=== PATIENT | male | born 1960 | race Caucasian/White ===

== ENCOUNTER 2017-03-20 19:37 | Inpatient (IN) | payer SELFPAY ==
[2017-03-20 21:01] LABS: BASOPHILS 0.5 % (0-2); EOSINOPHILS 0 % (0-7); HEMATOCRIT 33.7 % (42.0-54.0); HEMOGLOBIN 10.6 g/dL (13.5-17.5); IMMATURE GRANULOCYTES 0.3 % (0-5); LYMPHOCYTES 33.2 % (15-50); MCH 30.3 pg (26.0-34.0); MCHC 31.5 g/dL (31.0-37.0); MCV 96.3 fL (80.0-100.0); MEAN PLATELET VOLUME 9.7 fL (7.4-10.4); MONOCYTES 9.9 % (2-11); NEUTROPHILS 56.1 % (40-80); PLATELET COUNT 195 10x3/uL (130-400); RDW 13.6 % (11.5-14.5); WBC 3.6 10x3/uL (4.8-10.8)
[2017-03-20 21:18] LABS: INR 2.98 (0.85-1.17); PROTIME 31.2 SECONDS (11.6-15.0)
[2017-03-20 21:22] LABS: ALBUMIN 3.4 g/dL (3.4-5.0); CARBON DIOXIDE 29.1 mmol/L (21.0-32.0); CHLORIDE - SERUM 106 mmol/L (98-107); POTASSIUM - SERUM 4.2 mmol/L (3.5-5.1); SODIUM 142 mmol/L (136-145); eGFR NON AFRICAN AMERICAN 73 mL/min (90-120)
[2017-03-20 21:36] LABS: ALKALINE PHOSPHATASE 65 U/L (46-116); ALT (SGPT) 19 U/L (10-68); CALC OSMOLALITY 284 mosm/kg (275-300); CALCIUM 8.5 mg/dL (8.5-10.1); CREATINE KINASE 213 UL (21-232); CREATININE - SERUM 1.1 mg/dL (0.6-1.3); GLUCOSE 92 mg/dL (74-106); PROTEIN - SERUM 6.8 g/dL (6.4-8.2); UREA NITROGEN 18 mg/dL (7-18)
[2017-03-20 21:44] LABS: TROPONIN-I < 0.017 ng/mL (0.000-0.060)
[2017-03-20 22:46] LABS: PHENOBARBITAL 21.5 ug/mL (15.0-40.0); PHENYTOIN (DILANTIN) 13.6 ug/mL (10.0-20.0)
[2017-03-21] MEDS ORDERED: PRINIVIL20 MG PO (06:07)
[2017-03-21] MEDS ORDERED: LASIX20 MG (06:07)
[2017-03-21] MEDS ORDERED: BAYER CHEWABLE81 MG PO (06:08)
[2017-03-21] MEDS ORDERED: COUMADIN5 MG PO (06:08)
[2017-03-21] MEDS ORDERED: DILANTIN100 MG PO (06:09)
[2017-03-21] MEDS ORDERED: KEPPRA250 MG PO (06:10)
[2017-03-21] MEDS ORDERED: PHENOBARBITAL30 MG (06:10)
[2017-03-21] MEDS ORDERED: SPIRIVA18 MCG INH (06:11)
[2017-03-21] MEDS ORDERED: LIPITOR10 MG (06:12)
[2017-03-21] MEDS ORDERED: ADVAIR 100/501 DISK INH (06:12)
[2017-03-21] MEDS ORDERED: SINGULAIR10 MG PO (06:12)
== END 2017-03-21 10:03 | disposition left against medical advice (07) | DRG 312 ==
LOC: D.ER 19:37 → D.M2 23:33
PROVIDERS: Emergency Medicine; Nurse Practitioner Family; ADMIT Family Medicine
DX: R55 Syncope and collapse (principal); R41.0 Disorientation, unspecified; Z79.01 Long term (current) use of anticoagulants; E78.5 Hyperlipidemia, unspecified; G40.909 Epilepsy, unspecified, not intractable, without status epilepticus

== ENCOUNTER 2020-02-08 21:47 | Observation (INO) | payer SELFPAY ==
[~2020-02-08] VITALS: Ht 182.9 cm; Wt 111.4 kg
[~2020-02-08 21:47] MED LIST: ADVAIR 100/501 DISK INH; BAYER CHEWABLE81 MG PO; COUMADIN5 MG PO; DILANTIN100 MG PO; KEPPRA250 MG PO; LASIX20 MG; LIPITOR10 MG; PHENOBARBITAL30 MG; PRINIVIL20 MG PO; SINGULAIR10 MG PO; SPIRIVA18 MCG INH
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
--- NOTE | 2020-02-08 22:28 | NUR ---
THIS NURSE AT PT BEDSIDE. THIS NURSE ASKED PT TO ALLOW AN IV START AND LAB DRAW IN ORDER TO CARE FOR PT. PT REFUSING TO ALLOW IV START WITHOUT ULTRASOUND MACHINE. PT ADVISED ULTRASOUND WAS ONLY USED IN CERTAIN CASES. PT STATES "IM NOT GOING TO BE NO PIN CUSHION. IM A HARD STICK GET THAT MACHINE AND ILL LET YOU." PT REFUSING. PT ASKED IF ANOTHER NURSE COULD COME TRY. PT REFUSED. PT ADVISED THAT WE COULD NO TREAT HIM IF HE WAS GOING TO REFUSE ANY AND ALL CARE AND TESTING. PT STATES "ILL LET SOMEONE ELSE TRY ONE TIME." THIS NURSE ASKED FOR ASSISTANCE FROM ANOTHER RN. PT ALLOWED TWO DIFFERENT NURSES TO ATTEMPT. ONE IV OBTAINED.
[2020-02-08 22:42] VITALS: BP 136/71
--- NOTE | 2020-02-08 23:00 | NUR ---
PT STILL REFUSING TO ANSWER NURSES QUESTIONS. PT STATES "I DONT WANT TO TALK ABOUT IT. WHY DO YOU NEED TO KNOW THAT ANYWAY." PT REFUSES TO TELL THIS NURSE WHAT MEDICATIONS HE IS TAKING. PT REFUSING TO ANSWER QUESTIONS ABOUT PRESENT ILLNESS. EDP BENNY NOTIFIED.
[2020-02-08 23:17] LABS: BASOPHILS 0.3 % (0-2); EOSINOPHILS 0 % (0-7); HEMATOCRIT 29.8 % (42.0-54.0); HEMOGLOBIN 8.9 g/dL (13.5-17.5); LYMPHOCYTES 37.6 % (15-50); MCH 25.7 pg (26.0-34.0); MCHC 29.9 g/dL (31.0-37.0); MCV 86.1 fL (80.0-100.0); MONOCYTES 15.1 % (2-11); PLATELET COUNT 222 10x3/uL (130-400); RBC 3.46 10x6/uL (4.20-6.10); RDW 15.9 % (11.5-14.5); WBC 3.7 10x3/uL (4.8-10.8)
[2020-02-08 23:24] LABS: CALC OSMOLALITY 274 mosm/kg (275-300); CALCIUM 8.4 mg/dL (8.5-10.1); CARBON DIOXIDE 27.8 mmol/L (21.0-32.0); CHLORIDE - SERUM 106 mmol/L (98-107); GLUCOSE 85 mg/dL (74-106); POTASSIUM - SERUM 4.1 mmol/L (3.5-5.1); SODIUM 138 mmol/L (136-145); UREA NITROGEN 12 mg/dL (7-18); eGFR NON AFRICAN AMERICAN 81 mL/min (90-120)
[2020-02-08 23:28] LABS: APTT 34.3 SECONDS (22.8-39.4); INR 1.05 (0.85-1.17); PROTIME 13.7 SECONDS (11.6-15.0)
[2020-02-08 23:38] LABS: ALBUMIN 3.4 g/dL (3.4-5.0); ALKALINE PHOSPHATASE 80 U/L (30-120); ALT (SGPT) 13 U/L (10-68); BILIRUBIN - TOTAL 0.17 mg/dL (0.2-1.3); LIPASE 173 U/L (73-393); MAGNESIUM - SERUM 1.8 mg/dL (1.8-2.4); PRO BNP 33 pg/mL (0-125); PROTEIN - SERUM 7.8 g/dL (6.4-8.2); TROPONIN-I < 0.017 ng/mL (0.000-0.060)
--- NOTE | 2020-02-09 00:45 | NUR ---
THIS NURSE AT PT BEDSIDE FOR TRANSPORT. PT MAKING DEMANDS FOR NURSE NOT TO TOUCH HIM OR BELONGINGS. DEMANDING TO KNOW WHAT DOCTOR HE IS ADMITTED TO. THIS NURSE EXPLAINED TO PT WHO HE WAS ADMITTED TO. PT VOICED UNDERSTANDING. CHARGE NURSE AT BEDSIDE FOR ASSISTANCE.
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
--- NOTE | 2020-02-09 01:29 | NUR ---
PATIENT REQUESTED PAIN MEDS, INFORMED PATIENT ITS TOO EARLY. PATIENT THEN REQUESTED TOILETRIES, GIVEN REQUESTED. PATIENT THEN SAID HE NEEDS 2 MORE BODY WASHES AND MORE TOWELS. EXPLAINED TO PATIENT HE WAS GIVEN 4 LARGE TOWELS AND 4 WASH CLOTHS IN ADDITION TO WHAT WAS IN HIS ROOM UPON ARRIVAL. HE THEN ASKED, "I THOUGHT I ASKED YOU FOR ANOTHER GOWN" EXPLAINED TO PATIENT I SAT IT RIGHT BEHIND HIM. PATIENT THEN ASKED WHY WE AREN'T GETTING HIS BP, I REMINDED PATIENT THAT HE REFUSED, BUT I WOULD OBTAIN A SET IF HE WILL ALLOW US. PATIENT IS VERY DISRESPECTFUL AND INFORMED PATIENT THAT IT WILL NOT BE TOLERATED. EXPLAINED TO PATIENT WE ARE HERE TO HELP HIM AND GIVE HIM THE BEST QUALITY OF CARE THAT WE CAN BUT CANNOT DO SO WITH HIM ALLOWING US TO.
--- NOTE | 2020-02-09 02:03 | NUR ---
LABORER ORCHARD FINALLY ABLE TO OBTAIN VS AFTER PATIENT CALLED HER "RUDE AND IGNORANT" AND SAID TO "GET OUT AND DON'T COME BACK".
--- NOTE | 2020-02-09 05:11 | NUR ---
PATIENT ON CL TO NOTIFY ME THAT HE PULLED HIS IV OUT WITH CATH TIP INTACT. ASKED HIM FOR THE IV AND HE SAID HE PUT IT IN THE SHARPS CONTAINER. HE THEN ASKED CAN HE HAVE HIS PAIN MEDICINE. INFORMED PATIENT THAT HIS PAIN MEDICINE IS TO BE ADMINISTERED VIA IV AND THAT WITHOUT ACCESS IT CAN NOT BE ADMINISTERED. HE THEN ASKED IF ANOTHER ONE COULD BE STARTED. WILL ATTEMPT TO RESITE IV TOLERATED.
[2020-02-09 07:51] VITALS: BP 130/78; Ht 182.9 cm; Wt 111.4 kg
[2020-02-09 08:19] VITALS: BP 115/52
--- NOTE | 2020-02-09 11:18 | NUR ---
REFUSES TO STAY IN [facility]. HAS REFUSED IV, TELEMETRY AND LAB DRAWS. REFUSES TO WAIT AND SEE PHYSICIAN. RACHAEL CRUZ NOTIFIED. AMA PAPERS SIGNED.
== END 2020-02-09 11:20 | disposition left against medical advice (07) ==
LOC: D.ER 21:47 → D.M2 23:24 → OBSVTIME 23:24 → D.M2 23:24
PROVIDERS: Family Medicine; ADMIT Family Medicine; ATTEND Family Medicine
DX: I20.0 Unstable angina (principal); Z79.01 Long term (current) use of anticoagulants; D64.9 Anemia, unspecified; D72.819 Decreased white blood cell count, unspecified; I27.82 Chronic pulmonary embolism